=== PATIENT | male | born 1985 | race Caucasian/White ===

== ENCOUNTER 2022-07-17 08:43 | Outpatient (CLI) | payer BC, SELFPAY ==
[2022-07-17 15:10] LABS: Albumin* 4.6 g/dL (3.3-5.0); Chloride* 101 mmol/L (96-114)
[2022-07-17 15:11] LABS: Sodium* 138 mmol/L (135-149)
[2022-07-17 15:13] LABS: Carbon Dioxide* 27 mmol/L (20-32); Cholesterol* 201 mg/dL (90-199); Creatinine* 0.9 mg/dL (0.5-1.5); Estimated Glomerular Filt Rate 113 ml/min; Total Protein* 7.8 g/dL (6.0-8.3)
[2022-07-17 15:14] LABS: Alanine Aminotransferase* 29 U/L (4-50); Alkaline Phosphatase* 83 U/L (40-150); Aspartate Amino Transferase* 35 U/L (12-35); Bilirubin Total* 0.6 mg/dL (0.1-1.5); Blood Urea Nitrogen* 20 mg/dL (5-24); Calcium* 8.9 mg/dL (8.4-10.6); Glucose* 106 mg/dL (60-115); Triglycerides* 148 mg/dL (40-149)
[2022-07-17 15:15] LABS: HDL Cholesterol* 43 mg/dL (>=40); LDL Cholesterol Calculated 128 mg/dL (<100)
[2022-07-17 16:06] LABS: Vitamin B12* 471 pg/mL (243-894)
== END 2022-07-17 08:44 | disposition home or self-care (01) ==
PROVIDERS: PCP Family Medicine; Visit Provider Family Medicine
DX: E78.5 Hyperlipidemia, unspecified (principal); K21.9 Gastro-esophageal reflux disease without esophagitis; L40.8 Other psoriasis
CPT/HCPCS: 80053; 80061; 82607

== ENCOUNTER 2023-08-14 07:31 | Outpatient (CLI) | payer BC, SELFPAY | END 2023-08-14 07:32 | disposition home or self-care (01) | LOC: NFLDREF 08-15 07:55 | PROVIDERS: PCP Family Medicine; Referring Provider Family Medicine; Visit Provider Family Medicine | DX: E78.5 Hyperlipidemia, unspecified (principal); L40.8 Other psoriasis; R00.2 Palpitations | CPT/HCPCS: 80053; 80061; 82306 ==

== ENCOUNTER 2025-06-02 07:57 | Outpatient (CLI) | payer OTHER, SELFPAY | END 2025-06-02 07:58 | disposition home or self-care (01) | LOC: FRMREF 07:58 | PROVIDERS: Visit Provider Nurse Practitioner Family | DX: E78.5 Hyperlipidemia, unspecified (principal); K21.9 Gastro-esophageal reflux disease without esophagitis; R53.83 Other fatigue | CPT/HCPCS: 80053; 80061; 84270; 84402; 84403 ==